=== PATIENT | male | born 1990 | race Caucasian/White ===

== ENCOUNTER 2023-09-23 17:14 | Inpatient (IN) | payer OTHER ==
[~2023-09-23] VITALS: Ht 182.8 cm; Wt 60.9 kg
[~2023-09-23 17:14] MED LIST: METOCLOPRAMIDE5 MG PO
[2023-09-23 17:28] VITALS: BP 132/107
[2023-09-23] MEDS ORDERED: SODIUM CHLORIDE 0.9% 1,000 ML IV ONE (17:50)
[2023-09-23] MEDS ORDERED: Metoclopramide Hydrochloride 10 MG/2 ML AMP IV ONE (17:50)
[2023-09-23] MEDS ORDERED: diphenhydrAMINE hydrochloride 50 MG/ML VIAL IV ONE (17:50)
[2023-09-23 18:01] LABS: URINE AMPHETAMINES Negative (1000ng/ml); URINE BARBITURATES Negative (200ng/ml); URINE BENZODIAZEPINES Negative (200ng/ml); URINE CANNABINOIDS (THC) Positive (50ng/ml); URINE COCAINE Negative (300ng/ml); URINE METHADONE Negative (300ng/ml); URINE OPIATES Negative (300ng/ml); URINE PHENCYCLIDINE Negative (25ng/ml)
[2023-09-23 18:06] LABS: HEMATOCRIT 52.4 % (42.0-52.0); MEAN CELL VOLUME 84.7 fl (80.0-94.0); MEAN CORPUSCULAR HGB 29.7 pg (27.0-31.0); MEAN CORPUSCULAR HGB CONC 35.1 g/dl (33.0-37.0); MEAN PLATELET VOLUME 10.9 fl (9.6-12.3); PLATELET COUNT AUTOMATED 292 10*3/uL (130-400); RED BLOOD COUNT 6.19 10*6/uL (4.50-5.90); RED CELL DISTRI WIDTH 12.6 % (0-14.5); WHITE BLOOD COUNT 26.9 10*3/uL (4.8-10.8)
[2023-09-23 18:08] LABS: MANUAL DIFF REFLEX YES
[2023-09-23 18:23] LABS: ALKALINE PHOSPHATASE 78 U/L (46-116); BUN 54 mg/dl (9-23); CHLORIDE 80 mmol/L (98-107); LIPASE 38 U/L (12-53); POTASSIUM 3.5 mmol/L (3.4-5.1); SGPT/ALT 25 U/L (5-49); TOTAL PROTEIN 9.3 gm/dL (6.0-8.0)
[2023-09-23 18:27] LABS: ETHYL ALCOHOL < 3.0 mg/dl (<3)
[2023-09-23 18:31] LABS: TOTAL CELLS COUNTED 100 #CELLS
[2023-09-23 18:32] LABS: PLATELET SUFFICIENCY NORMAL (NORMAL)
[2023-09-23 19:30] VITALS: BP 147/102
[2023-09-23 20:00] LABS: BILIRUBIN Negative (Negative); BLOOD 1+ (Negative); CLARITY Cloudy (Clear); COLOR Yellow (Yellow); GLUCOSE Negative (Negative); KETONE Negative (Negative); LEUKO ESTERASE Negative (Negative); NITRITE Negative (Negative); SPECIFIC GRAVITY 1.015 (1.001-1.030)
[2023-09-23 20:12] LABS: BACTERIA TRACE; MUCOUS 1+
[2023-09-23] MEDS ORDERED: Ceftriaxone Sodium 1 GM/10 ML SYR IV ONE (20:25)
[2023-09-23] MEDS ORDERED: Ondansetron Hydrochloride 4 MG/2 ML VIAL IV PRN (20:55)
[2023-09-23] MEDS ORDERED: Acetaminophen/Hydrocodone 5 MG/325 MG TABLET PO PRN (20:55)
[2023-09-23] MEDS ORDERED: ACETAMINOPHEN 650 MG SUPP R PRN (20:55)
[2023-09-23] MEDS ORDERED: MORPHINE Sulfate 2 MG/ML SYR IV PRN (20:55)
[2023-09-23] MEDS ORDERED: Magnesium Hydroxide 30 ML UDC PO PRN (20:55)
[2023-09-23] MEDS ORDERED: BISACODYL 10 MG SUPP R PRN (20:55)
[2023-09-23] MEDS ORDERED: ACETAMINOPHEN 325 MG TAB PO PRN (20:55)
[2023-09-23] MEDS ORDERED: BISACODYL 5 MG TAB PO PRN (20:55)
[2023-09-23] MEDS ORDERED: SODIUM CHLORIDE 0.9% 1,000 ML IV SCH (21:00)
[2023-09-23 21:10] VITALS: BP 137/99
[2023-09-23] MEDS ORDERED: HEPARIN SODIUM 5,000 UNIT/ML VIAL SC SCH (22:00)
[2023-09-23 22:11] LABS: POTASSIUM 3.8 mmol/L (3.4-5.1)
[2023-09-24] VITALS: BP 117/82
[2023-09-24] MEDS ORDERED: MG-AL HYDROXIDE/SIMETICONE 30 ML UDC PO STA (01:43)
[2023-09-24 02:20] LABS: POTASSIUM 3.7 mmol/L (3.4-5.1)
[2023-09-24 05:22] LABS: POTASSIUM 3.3 mmol/L (3.4-5.1)
[2023-09-24] MEDS ORDERED: POTASSIUM CHLORIDE 20 MEQ TAB PO ONE ×2 (05:50→08:35)
[2023-09-24 06:32] LABS: HEMATOCRIT 45.3 % (42.0-52.0); MEAN CELL VOLUME 84.7 fl (80.0-94.0); MEAN CORPUSCULAR HGB 29.9 pg (27.0-31.0); MEAN CORPUSCULAR HGB CONC 35.3 g/dl (33.0-37.0); MEAN PLATELET VOLUME 11.7 fl (9.6-12.3); PLATELET COUNT AUTOMATED 275 10*3/uL (130-400); RED BLOOD COUNT 5.35 10*6/uL (4.50-5.90); RED CELL DISTRI WIDTH 12.5 % (0-14.5); WHITE BLOOD COUNT 18.4 10*3/uL (4.8-10.8)
[2023-09-24 06:40] LABS: MANUAL DIFF REFLEX YES
[2023-09-24 07:05] LABS: TOTAL CELLS COUNTED 100 #CELLS
[2023-09-24 07:06] LABS: BURR CELLS MODERATE; PLATELET SUFFICIENCY NORMAL (NORMAL); POLYCHROMASIA SLIGHT
[2023-09-24] MEDS ORDERED: Metoclopramide Hydrochloride 10 MG/2 ML AMP IV PRN (07:15)
[2023-09-24 08:01] VITALS: BP 135/94
[2023-09-24 09:12] LABS: VITAMIN D, 25-HYDROXY 11.8 ng/mL (30-100)
[2023-09-24] MEDS ORDERED: Nicotine 21 MG PATCH T SCH (10:00)
[2023-09-24 12:00] VITALS: BP 125/73
[2023-09-24 12:21] LABS: POTASSIUM 4.2 mmol/L (3.4-5.1)
[2023-09-24 16:00] VITALS: BP 125/87
[2023-09-24] MEDS ORDERED: hydrOXYzine pamoate 25 MG CAP PO PRN (18:05)
[2023-09-24] MEDS ORDERED: SODIUM CHLORIDE 0.9% 1,000 ML IV ONE (18:30)
[2023-09-24 20:00] VITALS: BP 142/87
[2023-09-24] MEDS ORDERED: Pantoprazole Sodium 40 MG VIAL IV ONE (21:05)
[2023-09-25] VITALS: BP 150/81
[2023-09-25 05:26] LABS: ALKALINE PHOSPHATASE 53 U/L (46-116); CHLORIDE 94 mmol/L (98-107); POTASSIUM 4.1 mmol/L (3.4-5.1); SGPT/ALT 28 U/L (5-49); TOTAL PROTEIN 6.9 gm/dL (6.0-8.0)
[2023-09-25 05:27] LABS: BUN 26 mg/dl (9-23)
[2023-09-25 05:57] LABS: EOS % 0.1 % (1.0-4.0); HEMATOCRIT 44.1 % (42.0-52.0); LYMPH # 1.9 10*3/uL (1.3-4.4); LYMPH % 19.9 % (27.0-41.0); MEAN PLATELET VOLUME 11.7 fl (9.6-12.3); MONO # 1.1 10*3/uL (0.1-1.0); MONO % 11.6 % (3.0-9.0); NEUT # 6.5 10*3/uL (2.3-7.9); NEUT % 68.2 % (47.0-73.0); PLATELET COUNT AUTOMATED 194 10*3/uL (130-400); RED CELL DISTRI WIDTH 12.4 % (0-14.5); WHITE BLOOD COUNT 9.5 10*3/uL (4.8-10.8)
[2023-09-25 06:20] LABS: MEAN CELL VOLUME 88.2 fl (80.0-94.0)
[2023-09-25 08:00] VITALS: BP 120/87
[2023-09-25] MEDS ORDERED: Cholecalciferol 2,000 UNIT TABLET (50 MCG) PO SCH (10:00)
[2023-09-25] MEDS ORDERED: ONDANSETRON4 MG SL (12:14)
[2023-09-25] MEDS ORDERED: HYDROXYZINE HCL25 MG PO (12:14)
== END 2023-09-25 12:34 | disposition home or self-care (01) | DRG 469 ==
LOC: ED 17:14 → ICCU 20:23 → 5E 20:23 → EDHOLD 20:23 → 5E 20:45 → ICCU 09-24 17:48
PROVIDERS: Emergency Medicine; Family Medicine; Internal Medicine; Student in an Organized Health Care Education/Training Program; ADMIT Internal Medicine; ATTEND Internal Medicine
DX: N17.0 Acute kidney failure with tubular necrosis (principal); E87.1 Hypo-osmolality and hyponatremia; E83.39 Other disorders of phosphorus metabolism; R65.10 Systemic inflammatory response syndrome (SIRS) of non-infectious origin without acute organ dysfunction; M62.82 Rhabdomyolysis; D75.1 Secondary polycythemia; E86.9 Volume depletion, unspecified; R73.9 Hyperglycemia, unspecified; E87.8 Other disorders of electrolyte and fluid balance, not elsewhere classified; R31.9 Hematuria, unspecified; F17.210 Nicotine dependence, cigarettes, uncomplicated; R11.15 Cyclical vomiting syndrome unrelated to migraine; E87.6 Hypokalemia; F12.10 Cannabis abuse, uncomplicated; Z90.49 Acquired absence of other specified parts of digestive tract; Z71.6 Tobacco abuse counseling; Z79.899 Other long term (current) drug therapy